=== PATIENT | female | born 1985 ===

== ENCOUNTER 2018-02-28 07:34 | Emergency (ER) | payer SELFPAY ==
[2018-02-28] MEDS ORDERED: Penicillin G Benzathine 2.4MU* 2,400,000 UNITS/4 ML SYR IM ONE (08:01)
--- NOTE | 2018-02-28 08:12 | UC ---
Throat Pain/Nasal [place] HPI - HPI Summary HPI Summary: ONSET OF SORE THROAT, PAIN WITH SWALLOWING, FEVER, CHILLS AND ACHINESS YESTERDAY. TEMPERATURE THIS MORNING WAS 100.6. HER MEDIA INTERN HAS RECENTLY BEEN DIAGNOSED WITH STREP. NO COUGH, CONGESTION, N/V. - History of Current Complaint Chief Complaint: UCGeneralIllness Stated Complaint: SORE THROAT Time Seen by Provider: 02/28/18 07:42 Hx Obtained From: Patient Hx Last Menstrual Period: 02/12/18 Onset/Duration: Gradual Onset, Lasting Days - 1 DAY Severity: Moderate Pain Intensity: 0 Pain Scale Used: 0-10 Numeric Cough: None Associated Signs & Symptoms: Positive: Fever - Allergies/Home Medications Allergies/Adverse Reactions: Allergies Allergy/AdvReac Type Severity Reaction Status Date / Time Sulfa (Sulfonamide Allergy Hives Verified 02/28/18 07:42 Antibiotics) PMH/Surg Hx/FS Hx/Imm Hx Previously Healthy: Yes - Surgical History Surgical History: Yes Surgery Procedure, Year, and Place: x2 2006, 2013 - Family History Known Family History: Negative: Hypertension - Social History Alcohol Use: None Substance Use Type: None Smoking Status (MU): Heavy Every Day Tobacco Smoker Amount Used/How Often: 1/2 PPD Review of Systems Constitutional: Fever, Chills, Fatigue ENT: Sore Throat Respiratory: Negative Cardiovascular: Negative Gastrointestinal: Negative All Other Systems Reviewed And Are Negative: Yes Physical Exam Triage Information Reviewed: Yes Appearance: Well-Appearing, No Pain Distress, Well-Nourished Vital Signs: Initial Vital Signs Temp 99.3 F 02/28/18 07:43 Pulse 111 02/28/18 07:43 Resp 18 02/28/18 07:43 BP 126/79 02/28/18 07:43 Pulse Ox 100 02/28/18 07:43 Vital Signs Reviewed: Yes Eyes: Positive: Conjunctiva Clear ENT: Positive: Hearing grossly normal, Pharyngeal erythema, TMs normal, Tonsillar swelling, Tonsillar exudate Neck: Positive: Supple, Tenderness @ - SPFL CERVICAL LAD, Enlarged Nodes @ - SPFL CERVICAL LAD (LEFT > RIGHT) Respiratory Exam: Normal Cardiovascular: Positive: Tachycardia Abdomen Description: Positive: Soft Musculoskeletal: Positive: No Edema Neurological: Positive: Alert Psychological: Positive: Age Appropriate Behavior Skin: Negative: rashes Throat Pain/Nasal Course/Dx - Course Course Of Treatment: STREP POSITIVE. BICILLIN LA 1.2 MILLION UNITS GIVEN IM. REST, OTC MEDS FOR DISCOMFORT. MAGIC MOUTHWASH NEEDED. - Differential Dx/Diagnosis Provider Diagnoses: STREP PHARYNGITIS Discharge - Sign-Out/Discharge Documenting (check all that apply): Patient Departure All imaging exams completed and their final reports reviewed: No Studies - Discharge Plan Condition: Stable Disposition: HOME Prescriptions: Magic Mouth Was-ALEJANDRO/MAAL/LIDO* 5 - 10 ml SWISH SWAL QID PRN #150 ml PRN Reason: Sore Throat Patient Education Materials: Strep Throat (ED) Forms: *Work Release Referrals: No Primary Care Phys,NOPCP [Primary Care Provider] - Additional Instructions: STREP TEST POSITIVE. YOU HAVE BEEN TREATED WITH AN INJECTION OF BICILLIN (PENICILLIN ANTIBIOTIC) MAGIC MOUTHWASH WILL HELP WITH SORE THROAT. YOU CAN ALSO USE OTC CHLORASEPTIC OR CEPACOL LOZENGES AND/OR IBUPROFEN NEEDED ONCE SYMPTOMS RESOLVED - NEW TOOTHBRUSH DO NOT SHARE FOOD, DRINK, UTENSILS CALL THE NUMBER BELOW FOR ASSISTANCE IN ESTABLISHING WITH A PCP An additional resource available to assist in finding the appropriate physician for your health care needs is [facility] ([facility]). You may contact them by calling [phone]. - Billing Disposition and Condition Condition: STABLE Disposition: Home
== END 2018-02-28 08:27 | disposition home or self-care (01) ==
LOC: UCEAST 07:34
DX: J02.0 Streptococcal pharyngitis (principal); Z88.2 Allergy status to sulfonamides
CPT/HCPCS: 87651; 96372; 99202; G0463; J0561